=== PATIENT | female | born 1930 | race Caucasian/White ===

== ENCOUNTER 2019-01-12 08:03 | Inpatient (IN) | payer MEDICARE, BC ==
[2019-01-12 08:44] LABS: ADD MAN DIFF? NO
[2019-01-12 08:50] LABS: BASOPHIL # 0.1 10^3/ul (0.0-0.1); EOSINOPHILS # 0.2 10^3/ul (0.0-0.5); EOSINOPHILS % 2.9 % (0.0-7.0); HEMATOCRIT 35.7 % (37.0-47.0); HEMOGLOBIN 11.8 g/dl (12.0-16.0); LYMPHOCYTES % 28.1 % (15.0-51.0); MEAN CORPUSCULAR HEMOGLOBIN 26.6 pg (29.0-33.0); MEAN CORPUSCULAR HGB CONC 33.1 g/dl (32.0-37.0); MEAN CORPUSCULAR VOLUME 80.6 fl (82.0-101.0); MEAN PLATELET VOLUME 9.5 fl (7.4-10.4); MONOCYTE # 0.8 10^3/ul (0.3-0.9); NEUTROPHILS % 56.7 % (39.0-77.0); PLATELET COUNT 322 10^3/UL (140-415); RED BLOOD COUNT 4.43 10^6/ul (4.20-5.40); RED CELL DISTRIBUTION WIDTH 13.2 % (11.5-14.5)
[2019-01-12 09:10] LABS: ALANINE AMINOTRANSFERASE 26 IU/L (13-69); ALBUMIN 4.1 g/dl (3.3-4.9); ALBUMIN/GLOBULIN RATIO 1.41; ALKALINE PHOSPHATASE 68 IU/L (42-121); ANION GAP 9 (5-13); ASPARTATE AMINO TRANSFERASE 26 IU/L (15-46); BILIRUBIN,INDIRECT 0.6 mg/dl (0-1.1); BILIRUBIN,TOTAL 0.6 mg/dl (0.2-1.3); BLOOD UREA NITROGEN 13 mg/dl (7-20); CALCIUM 9.2 mg/dl (8.4-10.2); CARBON DIOXIDE 30 mmol/L (21-31); CHLORIDE 99 mmol/L (97-110); CREATININE 0.82 mg/dl (0.44-1.00); GLUCOSE 104 mg/dl (70-220); POTASSIUM 3.7 mmol/L (3.5-5.1); SODIUM 138 mmol/L (135-144)
[2019-01-12 09:21] LABS: TROPONIN-I 0.028 ng/ml (0.000-0.120)
[2019-01-12] MEDS: IOHEXOL 100 ML (09:43)
[2019-01-12] MEDS: SOD CHLORIDE 0.9% 100 ML (09:43)
[2019-01-12] MEDS ORDERED: ONDANSETRON 4 MG INJ IV ×2 (10:30)
[2019-01-12] MEDS ORDERED: ACETAMINOPHEN 325 MG TAB PO ×2 (10:30)
[2019-01-12] MEDS ORDERED: NACL 0.9% 3 ML SYG IV (10:30)
[2019-01-12] MEDS ORDERED: HYDROCODONE/APAP (5/325) TAB PO (10:30)
[2019-01-12] MEDS ORDERED: morphine 2 MG INJ IV (10:30)
[2019-01-12 14:46] LABS: CREATINE KINASE 45 IU/L (23-200)
[2019-01-12 15:00] LABS: CK INDEX 2.7
[2019-01-12] MEDS: ASPIRIN 325 MG TAB PO (15:05)
[2019-01-12 15:10] LABS: TROPONIN-I 0.341 ng/ml (0.000-0.120)
[2019-01-12] MEDS: DOXAZOSIN 2 MG TAB PO (20:10)
[2019-01-12] MEDS: MONTELUKAST 10 MG TAB PO (20:11)
[2019-01-12] MEDS: ATORVASTATIN 80 MG TAB PO (20:11)
[2019-01-12 20:19] LABS: CREATINE KINASE 42 IU/L (23-200)
[2019-01-12 20:33] LABS: CK INDEX 3.1; CK-MB 1.31 ng/ml (0.0-2.4)
[2019-01-12 20:36] LABS: TROPONIN-I 0.417 ng/ml (0.000-0.120)
[2019-01-13 05:50] LABS: ADD MAN DIFF? NO
[2019-01-13 05:56] LABS: WHITE BLOOD COUNT 7.4 10^3/ul (4.8-10.8)
[2019-01-13 05:56] LABS: BASOPHIL # 0.1 10^3/ul (0.0-0.1); BASOPHILS % 0.8 % (0.0-2.0); EOSINOPHILS # 0.2 10^3/ul (0.0-0.5); EOSINOPHILS % 2.6 % (0.0-7.0); HEMATOCRIT 34.4 % (37.0-47.0); HEMOGLOBIN 11.4 g/dl (12.0-16.0); LYMPHOCYTES # 2.7 10^3/ul (0.8-2.9); LYMPHOCYTES % 35.9 % (15.0-51.0); MEAN CORPUSCULAR HEMOGLOBIN 27.1 pg (29.0-33.0); MEAN CORPUSCULAR HGB CONC 33.1 g/dl (32.0-37.0); MEAN CORPUSCULAR VOLUME 81.7 fl (82.0-101.0); MEAN PLATELET VOLUME 9.5 fl (7.4-10.4); MONOCYTE # 0.9 10^3/ul (0.3-0.9); MONOCYTES % 11.4 % (0.0-11.0); NEUTROPHIL # 3.7 10^3/ul (1.6-7.5); NEUTROPHILS % 49.2 % (39.0-77.0); PLATELET COUNT 321 10^3/UL (140-415); RED BLOOD COUNT 4.21 10^6/ul (4.20-5.40); RED CELL DISTRIBUTION WIDTH 13.4 % (11.5-14.5)
[2019-01-13] MEDS: PANTOPRAZOLE (EC) 40 MG TAB PO (06:34)
[2019-01-13 06:50] LABS: TROPONIN-I 0.188 ng/ml (0.000-0.120)
[2019-01-13 06:56] LABS: ALANINE AMINOTRANSFERASE 27 IU/L (13-69); ALBUMIN 3.7 g/dl (3.3-4.9); ALBUMIN/GLOBULIN RATIO 1.42; ALKALINE PHOSPHATASE 57 IU/L (42-121); ANION GAP 7 (5-13); ASPARTATE AMINO TRANSFERASE 27 IU/L (15-46); BILIRUBIN,INDIRECT 0.7 mg/dl (0-1.1); BILIRUBIN,TOTAL 0.7 mg/dl (0.2-1.3); BLOOD UREA NITROGEN 16 mg/dl (7-20); CALCIUM 9.1 mg/dl (8.4-10.2); CARBON DIOXIDE 31 mmol/L (21-31); CHLORIDE 101 mmol/L (97-110); CHOL/HDL RATIO 3.5 RATIO; CHOLESTEROL 187 mg/dl (100-200); CREATININE 0.87 mg/dl (0.44-1.00); GLUCOSE 96 mg/dl (70-220); HDL CHOLESTEROL 52 mg/dl (33-92); LDL CHOLESTEROL,CALCULATED 116 mg/dl; POTASSIUM 3.7 mmol/L (3.5-5.1); SODIUM 139 mmol/L (135-144); TOTAL PROTEIN 6.3 g/dl (6.1-8.1); TRIGLYCERIDES 95 mg/dl (0-149)
[2019-01-13] MEDS: GABAPENTIN 300 MG CAP PO (08:16)
[2019-01-13] MEDS: FERROUS SULFATE (EC) 325 MG TAB PO (08:17)
[2019-01-13] MEDS: HYDROCHLOROTHIAZIDE 25 MG TAB PO (08:17)
[2019-01-13] MEDS: ASPIRIN 81 MG TAB PO (08:17)
[2019-01-13] MEDS: AMLODIPINE 5 MG TAB PO (08:18)
[2019-01-13] MEDS: MONTELUKAST 10 MG TAB PO (20:31)
[2019-01-13] MEDS: ATORVASTATIN 80 MG TAB PO (20:31)
[2019-01-13] MEDS: DOXAZOSIN 2 MG TAB PO (20:36)
[2019-01-13] MEDS: SOD CHLORIDE 0.45% 1,000 ML IV (23:43)
[2019-01-14] MEDS: SOD CHLORIDE 0.45% 1,000 ML IV (02:48)
[2019-01-14 05:54] LABS: ADD MAN DIFF? NO
[2019-01-14] MEDS: PANTOPRAZOLE (EC) 40 MG TAB PO (05:59)
[2019-01-14 06:04] LABS: BASOPHIL # 0.1 10^3/ul (0.0-0.1); EOSINOPHILS # 0.2 10^3/ul (0.0-0.5); EOSINOPHILS % 2.7 % (0.0-7.0); HEMATOCRIT 32.7 % (37.0-47.0); HEMOGLOBIN 11.1 g/dl (12.0-16.0); LYMPHOCYTES # 2.9 10^3/ul (0.8-2.9); LYMPHOCYTES % 35.4 % (15.0-51.0); MEAN CORPUSCULAR HEMOGLOBIN 27.3 pg (29.0-33.0); MEAN CORPUSCULAR HGB CONC 33.9 g/dl (32.0-37.0); MEAN CORPUSCULAR VOLUME 80.5 fl (82.0-101.0); MEAN PLATELET VOLUME 9.6 fl (7.4-10.4); MONOCYTE # 0.8 10^3/ul (0.3-0.9); NEUTROPHIL # 4.1 10^3/ul (1.6-7.5); NEUTROPHILS % 50.7 % (39.0-77.0); PLATELET COUNT 305 10^3/UL (140-415); RED BLOOD COUNT 4.06 10^6/ul (4.20-5.40); RED CELL DISTRIBUTION WIDTH 13.4 % (11.5-14.5)
[2019-01-14 06:28] LABS: ANION GAP 6 (5-13); BLOOD UREA NITROGEN 19 mg/dl (7-20); CALCIUM 8.7 mg/dl (8.4-10.2); CARBON DIOXIDE 30 mmol/L (21-31); CHLORIDE 100 mmol/L (97-110); CREATININE 0.86 mg/dl (0.44-1.00); GLUCOSE 101 mg/dl (70-220); PHOSPHORUS 3.6 mg/dl (2.5-4.9); POTASSIUM 3.5 mmol/L (3.5-5.1); SODIUM 136 mmol/L (135-144)
[2019-01-14] MEDS: HYDROCHLOROTHIAZIDE 25 MG TAB PO (08:14)
[2019-01-14] MEDS: FERROUS SULFATE (EC) 325 MG TAB PO (08:14)
[2019-01-14] MEDS: ASPIRIN 81 MG TAB PO (08:15)
[2019-01-14] MEDS: AMLODIPINE 5 MG TAB PO (08:18)
[2019-01-14] MEDS: GABAPENTIN 300 MG CAP PO (08:18)
[2019-01-14] MEDS: REGADENOSON 0.4 MG/5 ML SYG (11:23)
[2019-01-14] MEDS: CLOPIDOGREL 75 MG TAB PO (15:35)
== END 2019-01-14 18:25 | disposition home or self-care (01) | DRG 282 ==
LOC: 6WM 15:28 → E/R 08:03 → 6WM 10:17
DX: I21.4 Non-ST elevation (NSTEMI) myocardial infarction (principal); R07.9 Chest pain, unspecified; R42 Dizziness and giddiness; I10 Essential (primary) hypertension; K21.9 Gastro-esophageal reflux disease without esophagitis; D64.9 Anemia, unspecified; M54.2 Cervicalgia; I44.0 Atrioventricular block, first degree; E78.5 Hyperlipidemia, unspecified; R51 Headache
CPT/HCPCS: 36415; 71045; 71275; 78452; 80048; 80053; 80061; 82550; 82553; 83036; 83735; 84100; 84443; 84484; 85025; 93005; 93017; 93306; 99285-25; G0378